=== PATIENT | male | born 1990 | race Hispanic/Latino ===

== ENCOUNTER 2020-02-18 14:05 | Emergency (ER) | payer SELFPAY ==
--- NOTE | 2020-02-18 14:47 | RAD ---
XR Forearm Lt 2 View STANDARD INDICATION: History of left arm laceration from a piece of sheet metal FINDINGS: Bones: No acute fracture or subluxation is evident. Joints: No acute abnormality. Soft tissues: There is soft tissue swelling and a laceration overlying the volar medial aspect of the distal right forearm. No radiopaque foreign body is evident. IMPRESSION: No acute osseous abnormality.
[2020-02-18] MEDS ORDERED: Lidocaine 1% w/Epinephrine 1:100K 20 ML VIAL ONE (15:31)
[2020-02-18] MEDS ORDERED: Adacel (T-DAP) 0.5 ML SYRINGE ONE (15:44)
[2020-02-18] MEDS ORDERED: Bacitracin 1 PK ONE ×2 (16:51→16:57)
== END 2020-02-18 16:55 | disposition home or self-care (01) ==
LOC: ERS 14:05
DX: S61.217A Laceration without foreign body of left little finger without damage to nail, initial encounter (principal); S51.812A Laceration without foreign body of left forearm, initial encounter; S61.412A Laceration without foreign body of left hand, initial encounter; S61.512A Laceration without foreign body of left wrist, initial encounter; W26.8XXA Contact with other sharp object(s), not elsewhere classified, initial encounter
CPT/HCPCS: 12002; 90471; 90715